=== PATIENT | male | born 1945 | race Caucasian/White ===

== ENCOUNTER 2016-12-12 20:39 | Inpatient (IN) | payer BC ==
--- NOTE | ~2016-12-12 | HP ---
History And Physical [facility] [address] [place]. [address] NAME: CARI LEE : 49 STATUS : ADM IN [facility]#: [id number] AGE: 71 ADM/REG DATE : 12/12/16 MR#: [id number] REPORT SERV DATE: 12/13/16 DICTATED BY: CORNELIO ROCK DATE: 12/12/16 REPORT STATUS : Draft TRANSCRIBED BY: MODL DATE: 12/12/16 DATE OF ADMISSION: 12/12/2016 CHIEF COMPLAINT: Fall at home and pain in his right hip. HISTORY OF PRESENT ILLNESS: This is a 71-year-old male, who presents to the emergency room at [facility], with the above-mentioned complaint. History is obtained from the patient, his family who is at bedside, and reviewing data available on the [employer] system. According to available data, Mr. Lee was putting away groceries and drinks in the refrigerator. He bent over to case picker some drinks to put in the refrigerator, but somehow fell to the floor. He fell on his right side, is pretty positive that he did not pass out. Unfortunately, he could not get up off the floor. Subsequently, the patient was brought to the emergency room via ambulance. In the emergency room, initial workup including x-ray of the hip showed right intertrochanteric fracture and Hospitalist Service is asked to admit him for further evaluation and treatment. At the time of my evaluation, he denied any chest pain, palpitations, or orthopnea. He had no cough, hemoptysis, night sweats, or weight loss. He denied any loss of consciousness. He had no fevers, chills, nausea, vomiting. He denied any hematemesis, hematochezia, or hematuria. He did not have any dysuria recently either. No other history of recent travel or exposures other than those mentioned above. PAST MEDICAL HISTORY: Significant for history of diabetes mellitus, for which he takes insulin and metformin. SOCIAL HISTORY: He chews an extraordinary large amount of tobacco, he chews a bag a week, which he says is about 20 plus scans. He denied alcohol use or recreational drug use. FAMILY HISTORY: Noncontributory. MEDICATIONS: His medications at home were reviewed by me in the chart today and reordered by me. REVIEW OF SYSTEMS: As in history of present illness. All other systems reviewed in detail and are quite unremarkable. PHYSICAL EXAMINATION: GENERAL: This is a pleasant 71-year-old, not in any acute distress. HEENT: His head is atraumatic, normocephalic. He is alert, awake, oriented to time, place, and person. Pupils are equal, reacting to light and accommodating. External ocular muscles are intact. Membranes are moist and pink. Sclerae are nonicteric. History And Physical [address] [address] NAME: CARI LEE : 49 STATUS : ADM IN [facility]#: [id number] AGE: 71 ADM/REG DATE : 12/12/16 MR#: [id number] REPORT SERV DATE: 12/13/16 DICTATED BY: CORNELIO ROCK DATE: 12/12/16 REPORT STATUS : Draft TRANSCRIBED BY: TAJ DATE: 12/12/16 NECK: Supple with no jugular venous distention, lymphadenopathy, or thyromegaly. LUNGS: Clear to auscultation with no wheezes, rubs, or crackles. HEART: Sounds regular with no murmurs, rubs, or gallops. ABDOMEN: Soft, nontender. Bowel sounds are present. EXTREMITIES: Showed numerous small breaks in the skin in his lower extremities, otherwise without cyanosis, clubbing, or edema. NEURO: Grossly intact. No focal sensory or motor deficits. Higher functions appear intact. VITAL SIGNS: Today showed a temperature of 98.6, pulse 88, respirations 20 a minute, blood pressure was 112/57, oxygen saturations were 94% breathing 2 L of oxygen via nasal cannula. LABORATORY DATA: Reviewed on the [employer] system showed a normal CMP with a blood glucose of 273. CBC was essentially within normal limits as well. Urinalysis was not done. Prothrombin time was 12.9 with an INR of 1.0. X-ray of the hip, films were reviewed by me on the PACS today and interpreted by me. Per my interpretation, there is right intertrochanteric fracture. Chest x-ray films were also reviewed and interpreted by me. There is mild congestion otherwise without any nodules, lobar consolidations, or pleural effusions. IMPRESSION: 1. Mechanical fall. 2. Right hip pain. 3. Right hip fracture. 4. Diabetes mellitus type 2. PLAN: We will admit Mr. Lee to the Hospitalist Service to a nonmonitored bed. We will start him on pain control with Dilaudid intravenously on an as needed basis. He has allergy to morphine. We will go ahead and consult Dr. Robert Carrasquillo to see him in the morning. Meanwhile, we will keep him n.p.o. after midnight. For blood sugar control, we will start him on NovoLog insulin given subcutaneously per sliding scale and check his A1c as well. We will also place him on SCDs for DVT prophylaxis while he is here. I have discussed the above plans with the patient and his family, questions were answered, and they are agreeable to the above recommendations. Hospitalist Service will be following him during his stay here. /TAJ Cornelio Rock M.D. / [id number] CC: Nando Griffin MD
--- NOTE | ~2016-12-12 | CN ---
Consultation Report [place] [id number] [facility] [address] [place]. [address] NAME: CARI FLORES : 49 STATUS : ADM IN [facility]#: [id number] AGE: 71 ADM/REG DATE : 12/12/16 MR#: [id number] REPORT SERV DATE: 12/14/16 DICTATED BY: ARIES LANDAVERDE DATE: 12/14/16 REPORT STATUS : Draft TRANSCRIBED BY: MODL DATE: 12/14/16 DATE OF CONSULTATION: 12/14/2016 CHIEF COMPLAINT: Right hip pain. HISTORY OF PRESENT ILLNESS: This pleasant 71-year old, had a same-level fall. He was brought to [facility] Emergency Room, where he was noted to have a right intertrochanteric hip fracture. I was subsequently consulted. Medicine Team admitted for medical optimization. PAST MEDICAL HISTORY: Significant for diabetes. PAST SURGICAL HISTORY: None. FAMILY HISTORY: Noncontributory. SOCIAL HISTORY: He chews about 20 cans of tobacco a week. No alcohol or recreational drug use. FAMILY HISTORY: Noncontributory. MEDICATIONS: Insulin and metformin. REVIEW OF SYSTEMS: No headache, chest pain, nausea, vomiting, shortness of breath, loss of consciousness during his fall. Negative per full 14-point systematic review. PHYSICAL EXAMINATION: GENERAL: In no apparent distress. A and O x3. Pleasant, cooperative to exam. HEENT: Pupils are equally round and reactive to light and accommodation. Extraocular muscles intact. CHEST: Clear to auscultation bilaterally. HEART: Regular rate and rhythm. ABDOMEN: Soft, nontender, nondistended. Bowel sounds are present. EXTREMITIES: Bilateral small skin breaks scabs bilateral upper extremities, lower extremities. Good distal pulses. No peripheral edema. Good sensation. Right lower extremity has limited range of motion and pain at the groin but there are no real skin breaks around the fracture site. Bilateral upper extremities, left lower extremity show full active and passive range of motion but no crepitus. RADIOGRAPHS: Radiographs reveal a right intertrochanteric hip fracture. ASSESSMENT AND PLAN: A 71-year old with right intertrochanteric hip fracture. PLAN: Plan will be for a closed reduction and intramedullary nailing. I have discussed the risks and benefits of this with him at length. He verbalized understanding and wished to Consultation Report [place] [phone] [facility] [address] [place]. [address] NAME: CARI FLORES : 49 STATUS : ADM IN PAT#: [id number] AGE: 71 ADM/REG DATE : 12/12/16 MR#: [id number] REPORT SERV DATE: 12/14/16 DICTATED BY: ARIES LANDAVERDE DATE: 12/14/16 REPORT STATUS : Draft TRANSCRIBED BY: TAJ DATE: 12/14/16 proceed. ANITA/TAJ Aries Landaverde M.D. / [id number] CC: MD Karen Car
--- NOTE | ~2016-12-12 | DS ---
Discharge Summary [facility] [address] [place]. [address] NAME: CARI LEE : 49 STATUS : DIS IN PAT#: [id number] AGE: 71 ADM/REG DATE : 12/12/16 MR#: [id number] REPORT SERV DATE: 12/20/16 DICTATED BY: PORTER RAVI DATE: 12/19/16 REPORT STATUS : Draft TRANSCRIBED BY: MODL DATE: 12/19/16 ADMISSION DATE: 12/12/2016 DISCHARGE DATE: 12/18/2016 CONDITION ON DISCHARGE: Stable. DISPOSITION: Discharged to inpatient rehab. DIAGNOSES ON DISCHARGE: 1. Right hip intertrochanteric fracture, status post surgery where he received closed reduction and intramedullary nailing of the right intertrochanteric hip fracture. The patient has done well postop. 2. Other diagnoses that are stable include diabetes mellitus that has come back not under good control as his A1c has come back greater than 8. His hemoglobin A1c during this hospitalization has come back at 8.1, reflecting diabetes mellitus, not well controlled. 3. Insulin-requiring diabetes mellitus. BRIEF HOSPITAL COURSE: Mr. Lee is a 71-year-old white male patient, who was admitted with fractured right hip after he accidentally fell on 12/12/2016. He was soon admitted, started on supportive and symptomatic care and given analgesics for pain control, and orthopedic surgeon was promptly consulted. He was seen by Dr. Robert Carrasquillo, and Dr. Carrasquillo performed the operation on 12/14/2016. The patient underwent closed reduction and intramedullary nailing of the right intertrochanteric fracture. He was transferred back to [address] [place] [address] after he was operated, and he did well postoperatively. He was placed on sliding scale insulin and long-acting insulin, and he did well after this and hence he is being transferred to inpatient rehab for further rehab after fixation of his right hip. I do have the following most recent labs on this patient. CBC on 12/18/2016 shows a WBC count of 4, hemoglobin of 10.5, hematocrit of 30.5, and platelet count of 156. His electrolyte profile on 12/18/2016 shows sodium 132, potassium of 3.6, BUN 25, and creatinine of 0.6. His sodium actually was much lower than 132 at one point during hospitalization. This was corrected with 3% normal saline and fluid restriction, and this came back to almost normal. As mentioned above, his hemoglobin A1c came back at 8.1, reflecting uncontrolled diabetes mellitus. Other tests include urinalysis that did not show any evidence of any infection. Chest x-ray, portable, that showed no acute cardiopulmonary abnormality, but an old healed left upper thoracic rib fractures that were present. The patient also had a hip x-ray of the right side and pelvis x-ray that of course showed an intertrochanteric fracture of the right hip, which has been repaired and operated upon with intramedullary nailing and closed reduction as mentioned before. I am discharging this patient to rehab on the following medications: Lantus insulin 36 units subcutaneously twice a day, NovoLog FlexPen 14 units before breakfast and 17 units before lunch and 15 units before supper, aspirin 81 mg once a day, Celexa 20 mg once a day, folic acid 1 mg once a day, Prilosec 20 mg p.o. b.i.d., Discharge Summary [address] [address] NAME: CARI LEE : 49 STATUS : DIS IN PAT#: [id number] AGE: 71 ADM/REG DATE : 12/12/16 MR#: [id number] REPORT SERV DATE: 12/20/16 DICTATED BY: PORTER RAVI DATE: 12/19/16 REPORT STATUS : Draft TRANSCRIBED BY: TAJ DATE: 12/19/16 Glucophage 1000 mg p.o. with breakfast and 1500 mg with supper, DiaBeta 10 mg p.o. b.i.d., Mevacor 40 mg p.o. daily, Neurontin 300 mg p.o. b.i.d. and 600 mg p.o. at bedtime, Mysoline or primidone 100 mg p.o. t.i.d. The patient has also been advised to stop chewing tobacco. The patient will also be on Coumadin sliding scale per Orthopedic surgery for anticoagulation for at least six weeks post hip surgery or until he is able to ambulate which ever happens first. I have spent about 40 to 45 minutes in coordinating discharge care of this patient including [id number] encounter and summarizing this discharge. HERMAN/TAJ Porter Ravi M.D. / [id number] CC: Sallie RojasTobin
--- NOTE | ~2016-12-12 | OP ---
Record Of Operation [facility] [address] [place]. [address] NAME: CARI FLORES : 49 STATUS : ADM IN PAT#: [id number] AGE: 71 ADM/REG DATE : 12/12/16 MR#: [id number] REPORT SERV DATE: 12/14/16 DICTATED BY: ARIES LANDAVERDE DATE: 12/14/16 REPORT STATUS : Draft TRANSCRIBED BY: MODL DATE: 12/14/16 DATE OF PROCEDURE: 12/14/2016 PREOPERATIVE DIAGNOSIS: Right intertrochanteric hip fracture. POSTOPERATIVE DIAGNOSIS: Right intertrochanteric hip fracture. PROCEDURE: Closed reduction and intramedullary nailing of the right intertrochanteric hip fracture. IMPLANTS: Wise [employer] Nephew 10 x 125, Intertan nail with a 115 lag screw and a 35 distal locking screw. COMPLICATIONS: None. BLOOD LOSS: Less than 50 mL. COUNTS RECORDED CORRECT: Yes. ANESTHESIA: General. CONDITION UPON LEAVING OPERATING ROOM: Stable to recovery room with good distal pulses. SPECIMENS: None. FINDINGS: Adequate bone stock, good reduction. PROCEDURE IN DETAIL: After the patient was identified in the preoperative holding area, again all questions asked were answered to their satisfaction. We marked the correct side and site and took the patient to the operative suite. The patient was placed under general endotracheal anesthesia, placed supine on a fracture table where the fracture was reduced as all bony prominences were well padded. They were then prepped and draped in sterile fashion. Correct timeout procedure and antibiotics were administered. We then utilized a 2 cm lateral incision just cephalad to his greater trochanter, carried sharply through the soft tissues. We gained good access to the proximal femur and under palpation and direct visualization with the C-arm, we identified the starting point and introduced our guidewire. We then utilized the proximal entry reamer to gain good access to the proximal femur. This was followed by placement of the nail in appropriate position on C-arm imagery. We then utilized a second incision. The extra medullary guide and a second pin to place the skin in a center-center position. Following that, we drilled sized and placed our lag screw. Traction was then removed from the leg and we reduced and compressed the fracture and then locked the lag screw in a static position to create a fixed angle device after the good compression had been utilized through the lag screw. With that, we locked distally through a poke-hole incision and the extramedullary guide. This was all done without incident. Fracture was noted to be stably fixed and hardware in good position on C-arm images. After the extramedullary guide had been removed with that, we copiously irrigated, closed the Record Of Operation [facility] [address] [place]. [address] NAME: CARI FLORES : 49 STATUS : ADM IN [facility]#: [id number] AGE: 71 ADM/REG DATE : 12/12/16 MR#: [id number] REPORT SERV DATE: 12/14/16 DICTATED BY: ARIES LANDAVERDE DATE: 12/14/16 REPORT STATUS : Draft TRANSCRIBED BY: TAJ DATE: 12/14/16 fascia with #1 Vicryl in an interrupted fashion followed by 2-0 Vicryl in the skin followed by skin kali. The patient was dressed appropriately and transferred to the recovery room in stable condition. The patient tolerated the procedure well without complication and was transferred to the intensive care unit upon extubation. ANITA/TAJ Aries Landaverde M.D. / [id number] CC: MD Karen Car
[2016-12-12 21:42] LABS: BASOPHILS 0.1 %; BASOPHILS ABSOLUTE 0.01 10/3/uL (0.0-0.16); EOSINOPHILS 1.4 %; ER CBC TAT 0 Hrs 03 Mins; HEMATOCRIT 46.1 % (40.0-51.0); HEMOGLOBIN 15.6 g/dL (13.6-17.8); IMMATURE GRANULOCYTES 0.3 %; IMMATURE GRANULOCYTES ABSOLUTE 0.02 10/3/uL (0.0-0.11); LYMPHOCYTES 18.7 %; LYMPHOCYTES ABSOLUTE 1.37 10/3/uL (0.67-4.30); MEAN CORPUS HGB CONC 33.8 g/dL (32.0-36.0); MEAN CORPUSCULAR HEMOGLOB 29.7 pg (26.0-34.0); MEAN CORPUSCULAR VOLUME 87.8 fL (80-100); MEAN PLATELET VOLUME 8.8 fL (9.2-13.0); MONOCYTES 3.6 %; MONOCYTES ABSOLUTE 0.26 10/3/uL (0.21-1.20); NEUTROPHILS 75.9 %; NEUTROPHILS ABSOLUTE 5.55 10/3/uL (2.02-8.40); PLATELET COUNT 163 10/3/uL (150-400); RBC DISTRIBUTION WIDTH 12.9 % (12.0-16.0); RED CELL COUNT 5.25 10/6/uL (4.7-6.1); WHITE BLOOD CELLS 7.3 10/3/uL (4.5-10.5)
[2016-12-12 21:45] LABS: MANUAL DIFF NO %
[2016-12-12] MEDS ORDERED: NOVOPEN SC ×3 (21:50→21:51)
[2016-12-12] MEDS ORDERED: LANTUSCART SC (21:50)
[2016-12-12] MEDS ORDERED: CELEXA20 PO (21:52)
[2016-12-12] MEDS ORDERED: HALF81 PO (21:52)
[2016-12-12] MEDS ORDERED: FOLIC PO (21:52)
[2016-12-12 21:53] LABS: BUN (BLOOD UREA NITROGEN) 12 MG/DL (6-23); CALCIUM, SERUM 8.9 MG/DL (8.5-10.4); CHLORIDE, SERUM 101 MMOL/L (96-112); CO2 (CARBON DIOXIDE) 25 MMOL/L (24-34); CREATININE 1.24 MG/DL (0.70-1.30); GFR AFRICAN AMERICAN 68 ML/MIN (>=60); GFR NON AFRICAN AMERICAN 59 ML/MIN (>=60); POTASSIUM, SERUM 4.8 MMOL/L (3.5-5.3); SODIUM, SERUM 138 MMOL/L (135-148)
[2016-12-12] MEDS ORDERED: VITD PO (21:53)
[2016-12-12] MEDS ORDERED: ZANTAC 150 PO (21:54)
[2016-12-12 21:55] LABS: GLUCOSE, SERUM 273 MG/DL (60-99)
[2016-12-12] MEDS ORDERED: MEVACOR40 MG PO (21:55)
[2016-12-12] MEDS ORDERED: DIABETA5 PO (21:55)
[2016-12-12] MEDS ORDERED: GLUCOPHAGE1000 MG PO ×2 (21:55)
[2016-12-12] MEDS ORDERED: NEUR300 PO (21:56)
[2016-12-12] MEDS ORDERED: NEUR600 PO (21:56)
[2016-12-12] MEDS ORDERED: PRIM50B PO (21:57)
[2016-12-12 21:58] LABS: PARTIAL THROMBO TIME 28.2 SEC (22.5-37.2); PROTIME (NOT ORD) 12.9 SEC (12.0-14.5)
[2016-12-12] MEDS ORDERED: DSS PO ×3 (21:58→22:15)
[2016-12-12] MEDS ORDERED: ANTI GAS PO (21:59)
[2016-12-12] MEDS ORDERED: BACTROINT TOP (22:16)
[2016-12-13 03:38] LABS: ASCORBIC ACID (UR NOT ORDER) NEG (NEG); BILIRUBIN, URINE NEGATIVE (NEG); KETONE, URINE TRACE MG/DL (NEG); LEUKOCYTE ESTERASE(NOT OR NEG (NEG); WBC (NOT ORDERED) (RFLEX) < 1 (0-5)
[2016-12-13 07:47] LABS: BASOPHILS 0.1 %; BASOPHILS ABSOLUTE 0.01 10/3/uL (0.0-0.16); EOSINOPHILS 1.3 %; EOSINOPHILS ABSOLUTE 0.09 10/3/uL (0.0-0.53); HEMOGLOBIN 13.8 g/dL (13.6-17.8); IMMATURE GRANULOCYTES 0.1 %; IMMATURE GRANULOCYTES ABSOLUTE 0.01 10/3/uL (0.0-0.11); LYMPHOCYTES 21.4 %; MEAN CORPUS HGB CONC 32.9 g/dL (32.0-36.0); MEAN CORPUSCULAR HEMOGLOB 29.1 pg (26.0-34.0); MEAN CORPUSCULAR VOLUME 88.4 fL (80-100); MEAN PLATELET VOLUME 8.9 fL (9.2-13.0); MONOCYTES 4.4 %; MONOCYTES ABSOLUTE 0.31 10/3/uL (0.21-1.20); NEUTROPHILS 72.7 %; PLATELET COUNT 160 10/3/uL (150-400); RED CELL COUNT 4.75 10/6/uL (4.7-6.1)
[2016-12-13 07:48] LABS: MANUAL DIFF NO %
[2016-12-13 07:58] LABS: CALCIUM, SERUM 8.7 MG/DL (8.5-10.4); CHLORIDE, SERUM 100 MMOL/L (96-112); CO2 (CARBON DIOXIDE) 28 MMOL/L (24-34); CREATININE 1.04 MG/DL (0.70-1.30); GFR AFRICAN AMERICAN 85 ML/MIN (>=60); GFR NON AFRICAN AMERICAN 73 ML/MIN (>=60); GLUCOSE, SERUM 263 MG/DL (60-99); PHOSPHORUS, SERUM 3.6 MG/DL (2.5-4.5); POTASSIUM, SERUM 4.7 MMOL/L (3.5-5.3); SODIUM, SERUM 136 MMOL/L (135-148)
[2016-12-13 07:59] LABS: BUN (BLOOD UREA NITROGEN) 18 MG/DL (6-23)
[2016-12-14 06:54] LABS: BASOPHILS 0.3 %; BASOPHILS ABSOLUTE 0.02 10/3/uL (0.0-0.16); EOSINOPHILS 2.2 %; EOSINOPHILS ABSOLUTE 0.13 10/3/uL (0.0-0.53); HEMATOCRIT 37.9 % (40.0-51.0); HEMOGLOBIN 12.5 g/dL (13.6-17.8); IMMATURE GRANULOCYTES 0.2 %; IMMATURE GRANULOCYTES ABSOLUTE 0.01 10/3/uL (0.0-0.11); LYMPHOCYTES 21.6 %; LYMPHOCYTES ABSOLUTE 1.28 10/3/uL (0.67-4.30); MEAN CORPUSCULAR HEMOGLOB 29.9 pg (26.0-34.0); MEAN CORPUSCULAR VOLUME 90.7 fL (80-100); MEAN PLATELET VOLUME 8.6 fL (9.2-13.0); MONOCYTES 5.4 %; MONOCYTES ABSOLUTE 0.32 10/3/uL (0.21-1.20); NEUTROPHILS 70.3 %; NEUTROPHILS ABSOLUTE 4.17 10/3/uL (2.02-8.40); PLATELET COUNT 126 10/3/uL (150-400); RBC DISTRIBUTION WIDTH 12.9 % (12.0-16.0); RED CELL COUNT 4.18 10/6/uL (4.7-6.1); WHITE BLOOD CELLS 5.9 10/3/uL (4.5-10.5)
[2016-12-14 07:00] LABS: MANUAL DIFF NO %
[2016-12-14 07:03] LABS: BUN (BLOOD UREA NITROGEN) 15 MG/DL (6-23); CHLORIDE, SERUM 101 MMOL/L (96-112); CO2 (CARBON DIOXIDE) 29 MMOL/L (24-34); CREATININE 0.92 MG/DL (0.70-1.30); GFR AFRICAN AMERICAN 98 ML/MIN (>=60); GFR NON AFRICAN AMERICAN 85 ML/MIN (>=60); GLUCOSE, SERUM 221 MG/DL (60-99); POTASSIUM, SERUM 4.8 MMOL/L (3.5-5.3); SODIUM, SERUM 136 MMOL/L (135-148)
[2016-12-15 05:59] LABS: BASOPHILS 0.2 %; BASOPHILS ABSOLUTE 0.01 10/3/uL (0.0-0.16); EOSINOPHILS 0.9 %; EOSINOPHILS ABSOLUTE 0.05 10/3/uL (0.0-0.53); HEMOGLOBIN 11.2 g/dL (13.6-17.8); IMMATURE GRANULOCYTES 0.4 %; IMMATURE GRANULOCYTES ABSOLUTE 0.02 10/3/uL (0.0-0.11); LYMPHOCYTES 16.8 %; LYMPHOCYTES ABSOLUTE 0.96 10/3/uL (0.67-4.30); MEAN CORPUS HGB CONC 33.3 g/dL (32.0-36.0); MEAN CORPUSCULAR HEMOGLOB 30.1 pg (26.0-34.0); MEAN CORPUSCULAR VOLUME 90.3 fL (80-100); MEAN PLATELET VOLUME 8.7 fL (9.2-13.0); MONOCYTES 5.6 %; MONOCYTES ABSOLUTE 0.32 10/3/uL (0.21-1.20); NEUTROPHILS 76.1 %; NEUTROPHILS ABSOLUTE 4.35 10/3/uL (2.02-8.40); PLATELET COUNT 136 10/3/uL (150-400); RED CELL COUNT 3.72 10/6/uL (4.7-6.1); WHITE BLOOD CELLS 5.7 10/3/uL (4.5-10.5)
[2016-12-15 06:00] LABS: HEMATOCRIT 33.6 % (40.0-51.0); MANUAL DIFF NO %
[2016-12-15 06:03] LABS: INTERNATIONAL NORMAL RATI 1.1 UNITS (-); PROTIME (NOT ORD) 14.3 SEC (12.0-14.5)
[2016-12-15 06:15] LABS: BUN (BLOOD UREA NITROGEN) 14 MG/DL (6-23); CALCIUM, SERUM 8.2 MG/DL (8.5-10.4); CHLORIDE, SERUM 94 MMOL/L (96-112); CREATININE 0.89 MG/DL (0.70-1.30); GFR AFRICAN AMERICAN 101 ML/MIN (>=60); GFR NON AFRICAN AMERICAN 87 ML/MIN (>=60); GLUCOSE, SERUM 243 MG/DL (60-99); POTASSIUM, SERUM 4.6 MMOL/L (3.5-5.3)
[2016-12-15 06:16] LABS: CO2 (CARBON DIOXIDE) 24 MMOL/L (24-34); SODIUM, SERUM 129 MMOL/L (135-148)
[2016-12-16 07:54] LABS: BASOPHILS 0.4 %; BASOPHILS ABSOLUTE 0.02 10/3/uL (0.0-0.16); EOSINOPHILS 1.5 %; EOSINOPHILS ABSOLUTE 0.08 10/3/uL (0.0-0.53); HEMOGLOBIN 10.8 g/dL (13.6-17.8); IMMATURE GRANULOCYTES 0.2 %; IMMATURE GRANULOCYTES ABSOLUTE 0.01 10/3/uL (0.0-0.11); LYMPHOCYTES 12.5 %; LYMPHOCYTES ABSOLUTE 0.66 10/3/uL (0.67-4.30); MEAN CORPUS HGB CONC 32.7 g/dL (32.0-36.0); MEAN CORPUSCULAR HEMOGLOB 28.6 pg (26.0-34.0); MEAN PLATELET VOLUME 8.7 fL (9.2-13.0); MONOCYTES 7.2 %; MONOCYTES ABSOLUTE 0.38 10/3/uL (0.21-1.20); NEUTROPHILS 78.2 %; NEUTROPHILS ABSOLUTE 4.11 10/3/uL (2.02-8.40); PLATELET COUNT 153 10/3/uL (150-400); RED CELL COUNT 3.78 10/6/uL (4.7-6.1); WHITE BLOOD CELLS 5.3 10/3/uL (4.5-10.5)
[2016-12-16 07:56] LABS: MANUAL DIFF NO %; MEAN CORPUSCULAR VOLUME 87.3 fL (80-100)
[2016-12-16 08:01] LABS: INTERNATIONAL NORMAL RATI 1.2 UNITS (-); PROTIME (NOT ORD) 14.8 SEC (12.0-14.5)
[2016-12-16 08:02] LABS: BUN (BLOOD UREA NITROGEN) 17 MG/DL (6-23); CALCIUM, SERUM 8.2 MG/DL (8.5-10.4); CHLORIDE, SERUM 92 MMOL/L (96-112); CO2 (CARBON DIOXIDE) 28 MMOL/L (24-34); CREATININE 0.92 MG/DL (0.70-1.30); GFR AFRICAN AMERICAN 98 ML/MIN (>=60); GFR NON AFRICAN AMERICAN 85 ML/MIN (>=60); POTASSIUM, SERUM 4.1 MMOL/L (3.5-5.3); SODIUM, SERUM 129 MMOL/L (135-148)
[2016-12-16 08:03] LABS: GLUCOSE, SERUM 178 MG/DL (60-99)
[2016-12-17 06:56] LABS: BASOPHILS 0.2 %; BASOPHILS ABSOLUTE 0.01 10/3/uL (0.0-0.16); EOSINOPHILS 1.9 %; EOSINOPHILS ABSOLUTE 0.11 10/3/uL (0.0-0.53); HEMATOCRIT 32.8 % (40.0-51.0); HEMOGLOBIN 11.2 g/dL (13.6-17.8); IMMATURE GRANULOCYTES 0.3 %; IMMATURE GRANULOCYTES ABSOLUTE 0.02 10/3/uL (0.0-0.11); LYMPHOCYTES 11.5 %; LYMPHOCYTES ABSOLUTE 0.66 10/3/uL (0.67-4.30); MANUAL DIFF NO %; MEAN CORPUS HGB CONC 34.1 g/dL (32.0-36.0); MEAN CORPUSCULAR HEMOGLOB 29.9 pg (26.0-34.0); MEAN CORPUSCULAR VOLUME 87.5 fL (80-100); MEAN PLATELET VOLUME 8.8 fL (9.2-13.0); MONOCYTES 9.7 %; MONOCYTES ABSOLUTE 0.56 10/3/uL (0.21-1.20); NEUTROPHILS 76.4 %; NEUTROPHILS ABSOLUTE 4.39 10/3/uL (2.02-8.40); PLATELET COUNT 200 10/3/uL (150-400); RBC DISTRIBUTION WIDTH 12.9 % (12.0-16.0); RED CELL COUNT 3.75 10/6/uL (4.7-6.1); WHITE BLOOD CELLS 5.8 10/3/uL (4.5-10.5)
[2016-12-17 07:00] LABS: INTERNATIONAL NORMAL RATI 1.2 UNITS (-); PROTIME (NOT ORD) 15.1 SEC (12.0-14.5)
[2016-12-17 07:19] LABS: BUN (BLOOD UREA NITROGEN) 24 MG/DL (6-23); CALCIUM, SERUM 8.5 MG/DL (8.5-10.4); CHLORIDE, SERUM 93 MMOL/L (96-112); CO2 (CARBON DIOXIDE) 27 MMOL/L (24-34); CREATININE 0.77 MG/DL (0.70-1.30); GFR AFRICAN AMERICAN 107 ML/MIN (>=60); GFR NON AFRICAN AMERICAN 93 ML/MIN (>=60); GLUCOSE, SERUM 76 MG/DL (60-99); POTASSIUM, SERUM 3.5 MMOL/L (3.5-5.3); SODIUM, SERUM 128 MMOL/L (135-148)
[2016-12-18 07:11] LABS: BASOPHILS 0.5 %; BASOPHILS ABSOLUTE 0.02 10/3/uL (0.0-0.16); EOSINOPHILS ABSOLUTE 0.12 10/3/uL (0.0-0.53); HEMATOCRIT 30.5 % (40.0-51.0); HEMOGLOBIN 10.5 g/dL (13.6-17.8); IMMATURE GRANULOCYTES 0.5 %; IMMATURE GRANULOCYTES ABSOLUTE 0.02 10/3/uL (0.0-0.11); LYMPHOCYTES 13.6 %; LYMPHOCYTES ABSOLUTE 0.55 10/3/uL (0.67-4.30); MEAN CORPUS HGB CONC 34.4 g/dL (32.0-36.0); MEAN CORPUSCULAR HEMOGLOB 28.9 pg (26.0-34.0); MEAN PLATELET VOLUME 8.8 fL (9.2-13.0); MONOCYTES 10.1 %; MONOCYTES ABSOLUTE 0.41 10/3/uL (0.21-1.20); NEUTROPHILS 72.3 %; NEUTROPHILS ABSOLUTE 2.92 10/3/uL (2.02-8.40); PLATELET COUNT 156 10/3/uL (150-400); RBC DISTRIBUTION WIDTH 12.9 % (12.0-16.0); RED CELL COUNT 3.63 10/6/uL (4.7-6.1)
[2016-12-18 07:12] LABS: MANUAL DIFF NO %
[2016-12-18 07:23] LABS: BUN (BLOOD UREA NITROGEN) 25 MG/DL (6-23); CALCIUM, SERUM 7.8 MG/DL (8.5-10.4); CHLORIDE, SERUM 96 MMOL/L (96-112); CO2 (CARBON DIOXIDE) 24 MMOL/L (24-34); CREATININE 0.64 MG/DL (0.70-1.30); GFR AFRICAN AMERICAN 116 ML/MIN (>=60); GFR NON AFRICAN AMERICAN 100 ML/MIN (>=60); POTASSIUM, SERUM 3.6 MMOL/L (3.5-5.3); SODIUM, SERUM 132 MMOL/L (135-148)
[2016-12-18 07:24] LABS: GLUCOSE, SERUM 109 MG/DL (60-99)
[2016-12-18 07:51] LABS: PLATELET ESTIMATE ADQ (ADEQUATE)
[2016-12-18 07:52] LABS: RBC MORPHOLOGY NORM (NORMAL)
== END 2016-12-18 20:29 | DRG 481 ==
LOC: ER 20:39 → 1SO 22:16
PROVIDERS: Emergency Medicine; Hospitalist; Nurse Practitioner Family; Orthopaedic Surgery
PROC: 0QS636Z Reposition Right Upper Femur with Intramedullary Internal Fixation Device, Percutaneous Approach (ICD-10-PCS; principal; 2016-12-14 13:45)
DX: S72.141A Displaced intertrochanteric fracture of right femur, initial encounter for closed fracture (principal); E87.1 Hypo-osmolality and hyponatremia; E11.42 Type 2 diabetes mellitus with diabetic polyneuropathy; E11.65 Type 2 diabetes mellitus with hyperglycemia; E83.42 Hypomagnesemia; R81 Glycosuria; I10 Essential (primary) hypertension; F17.290 Nicotine dependence, other tobacco product, uncomplicated; K21.9 Gastro-esophageal reflux disease without esophagitis; N40.1 Benign prostatic hyperplasia with lower urinary tract symptoms; R33.8 Other retention of urine; F32.9 Major depressive disorder, single episode, unspecified; G25.0 Essential tremor; W18.30XA Fall on same level, unspecified, initial encounter; Z79.4 Long term (current) use of insulin; Z79.84 Long term (current) use of oral hypoglycemic drugs; Z79.82 Long term (current) use of aspirin; Z79.899 Other long term (current) drug therapy; Z88.5 Allergy status to narcotic agent; Z88.8 Allergy status to other drugs, medicaments and biological substances
CPT/HCPCS: 36415; 71010; 72170; 73502-RT; 76000; 80048; 81001; 82962; 83036; 83735; 84100; 85025; 85610; 85730; 86850; 86900; 86901; 86920; 93005; 94640; 97110-GP; 97162-GP; 97165-GO; 97530-GP; 99285; A9270-GY; C1713; C9113; J0330; J0690; J1170; J2405; J2710; J3010

== ENCOUNTER 2017-02-14 13:54 | Inpatient (IN) | payer BC ==
--- NOTE | ~2017-02-14 | DS ---
Discharge Summary [place] [address] [place]. [address] NAME: CARI FLORES : 49 STATUS : DIS IN PAT#: [id number] AGE: 71 ADM/REG DATE : 02/14/17 MR#: [id number] REPORT SERV DATE: 02/19/17 DICTATED BY: STEFFI LE DATE: 02/18/17 REPORT STATUS : Draft TRANSCRIBED BY: MODLarry DATE: 02/18/17 ADMISSION DATE: 02/14/2017 DISCHARGE DATE: 02/18/2017 REASON FOR ADMISSION: Right hip pain after a fall. HISTORY OF PRESENT ILLNESS: Please refer to Dr. Lucero's history and physical dated 02/14/2017 for complete details regarding the patient's admission. In brief, the patient was admitted to the Hospitalist for right hip pain, concerning for an acute right hip fracture after a fall. HOSPITAL COURSE: The patient had an uncomplicated hospital course. The patient had a CT scan of his hip, which showed subacute healing, right intertrochanteric hip fracture with orthopedic hip nail remaining in satisfactory position. No new fracture is seen. Dr. Shields with Orthopedics was consulted as he had performed a surgery recently, did not recommend any further intervention other than pain control and physical therapy and placement. Placement was monitored. We restarted all of his home medications and watched his diabetes. His sugars were decently controlled. Physical Therapy evaluated the patient and recommended rehab, and we have been awaiting insurance approval to [facility]. The patient will hopefully be discharged today in a stable condition to [facility] once we have insurance approval. DISCHARGE DIAGNOSES: Right hip pain, status post fall; history of a right hip intertrochanteric fracture, status post close reduction and intramedullary nailing in December; insulin-dependent diabetes; morbid obesity; and hyperlipidemia. PROCEDURES: Include x-ray of the hip, CT scan of the hip, consultation by Dr. Shields. DISCHARGE MEDICATIONS: Include Celexa 20 mg daily; vitamin D 50,000 units every seven days; Zantac 150 mg twice a day; folic acid daily; gabapentin 300 mg twice a day along with 600 mg at bedtime; insulin glargine 36 units twice a day; insulin aspart 14 units before breakfast, 17 units before lunch, 15 units before supper; Mevacor 40 mg once a day; primidone 100 mg three times a day; aspirin 81 mg daily; metformin 1000 mg with breakfast and 1500 mg with supper; and DiaBeta 10 mg twice a day. The patient was discharged to [facility] once he has approval. SHAKA/TAJ Steffi Le MD / [id number] Discharge Summary [address] [address] NAME: CARI FLORES : 49 STATUS : DIS IN PAT#: [id number] AGE: 71 ADM/REG DATE : 02/14/17 MR#: [id number] REPORT SERV DATE: 02/19/17 DICTATED BY: STEFFI LE DATE: 02/18/17 REPORT STATUS : Draft TRANSCRIBED BY: TAJ DATE: 02/18/17 CC: MD Karen Nelson
--- NOTE | ~2017-02-14 | HP ---
History And Physical [id number] [place]. [address] NAME: CARI FLORES : 49 STATUS : ADM IN PAT#: [id number] AGE: 71 ADM/REG DATE : 02/14/17 MR#: [id number] REPORT SERV DATE: 02/14/17 DICTATED BY: BRAVO SWENSON DATE: 02/14/17 REPORT STATUS : Draft TRANSCRIBED BY: TAJ DATE: 02/14/17 DATE OF ADMISSION: 02/14/2017 CHIEF COMPLAINT: Right hip pain status post fall. This is a 71 years old male with a past medical history of recent right intertrochanteric fracture, status post ORIF by Dr. Carrasquillo on 12/14/2016, for which the patient was discharged from the hospital and transferred to [facility] at [place] for rehab. The patient states that he was able to ambulate while at rehab but was informed that he was not allowed to ambulate without assistance at discharge, therefore the patient was discharged home with a wheelchair and has been using a wheelchair while at home, however approximately three days ago, the patient states that he was sleeping in bed on his right side but sleeping too close to the edge of the bed and slipped out of the bed and fell onto his right side hard on the ground, experienced acute right hip pain. Also, the patient hit the side of the dresser with his chest and has a small laceration to his right-sided chest wall. He denies any loss of consciousness. He denies any head trauma, did not hit his head at all. Currently has no chest pain. No shortness of breath. The patient states he was able to get himself back into bed by pulling himself up, however yesterday, the patient called a family member, his [id number], due to the patient not being able to get back into bed due to worsening right hip pain, not able to stand on his right hip, therefore the patient was brought to the emergency department today, seen by a nurse practitioner, Marlene. The patient had an x-ray with findings of a possible recurrent right hip fracture Dr. Shields who is air traffic control specialist center for Dr. Carrasquillo, was called and consulted by ER staff and spoken to by Dr. Hermann Bello and with recommendations of ordering a CT of the hip for further investigation, and the hospitalist was called to admit the patient to the hospital. REVIEW OF SYSTEMS: No subjective fever or chills. No headaches. No shortness of breath. No chest pain. No nausea or vomiting. No abdominal pain. Positive right hip pain. Right hand pain. Please refer to HPI. PAST MEDICAL HISTORY: Type 2 diabetes. Right intertrochanteric fracture, status post ORIF 07/14/2017, and hyperlipidemia. PAST SURGICAL HISTORY: As above and right shoulder surgery. FAMILY HISTORY: Type 2 diabetes. SOCIAL HISTORY: He used to chew tobacco and quit in November 2015. He states family has thrown out his chewing tobacco. No alcohol or illicit drugs. Uses a wheelchair at home. Has a mygqauz-qv-rrz at bedside assisting with care. ALLERGIES: NO KNOWN ALLERGIES. HOME MEDICATIONS: Aspirin 81 mg p.o. daily; Celexa 20 mg p.o. daily; vitamin D 50,000 units p.o.q. 7 days; folic acid 1 mg p.o. q.a.m.; Neurontin 300 mg p.o. with breakfast and supper History And Physical [address] [address] NAME: CARI FLORES : [birth year] STATUS : ADM IN [facility]#: [id number] AGE: 71 ADM/REG DATE : 02/14/17 MR#: [id number] REPORT SERV DATE: 02/14/17 DICTATED BY: BRAVO SWENSON DATE: 02/14/17 REPORT STATUS : Draft TRANSCRIBED BY: TAJ DATE: 02/14/17 and 600 mg p.o. at bedtime; glyburide 5 mg p.o. b.i.d.; NovoLog 14 units subcu before breakfast and 17 units before lunch and 15 units before supper; Lantus 36 units subcu b.i.d.; Mevacor 40 mg p.o. q. supper; metformin 1000 mg with breakfast and 1500 p.o. at bedtime; Mysoline 100 mg p.o. t.i.d.; and Zantac 150 mg p.o. b.i.d. PHYSICAL EXAMINATION: VITAL SIGNS: Temperature of 97.4, blood pressure initially 163/70, currently at 140/78, pulse was 55, respiration of 17, and saturating 96% on room air. GENERAL: The patient is alert and oriented x3, currently in no distress. HEENT: Pupils equal, round, and reactive to light. Extraocular muscles are intact. Moist mucous membranes. CARDIOVASCULAR: S1, S2. Regular rate and rhythm. No murmurs, rubs, or gallops. No JVD. RESPIRATORY: Clear to auscultation bilaterally. No wheezes or crackles. No signs of tachypnea. ABDOMEN: Positive bowel sounds. Soft, nontender. No rebound. No fluid wave. No distention. EXTREMITIES: 2+ pulse bilaterally with a trace of edema with some mild shortening of the right lower extremity. NEUROLOGIC: Cranial nerves II through XII grossly intact. Moves all four extremities except for right lower extremity limited secondary to severe pain. SKIN: Laceration of the right chest wall appears to be healing. RADIOLOGY: X-ray with a healing right hip fracture with orthopedic hardware in satisfactory position. No acute changes. Dr. Kang read it. LABORATORY DATA: Sodium 140, potassium 3.9, with a chloride of 105, bicarb of 31, BUN of 7 with a creatinine of 0.77 with a glucose of 144. Magnesium of 1.5. White cell count of 4, hemoglobin of 14.3 with a platelet count of 145. INR of 1.2. UA negative. ASSESSMENT AND PLAN: 1. Suspected repeat acute right hip fracture, status post fall. 2. Type 2 diabetes. 3. Hyperlipidemia. 4. The patient will have a CT of the hip which was recommended by Dr. Shields to ER staff with reviewing x-ray of his hip, there is a possible hairline fracture at the intertrochanteric site which was not there on previous admission, therefore, we will follow up with CT for further details. Also Dr. Carrasquillo will be reconsulted. Currently Dr. Shields is air traffic control specialist center, who will initiate consultation and already been consulted in the ER. Also, we will continue with home medications for diabetes medicines with sliding scale insulin and closely monitor with fall precautions and follow up with Orthopedic recommendations. Also we will correct electrolytes as needed. BHASKAR/MODL Bravo N History And Physical [address] [place]. [address] NAME: CARI FLORES : 49 STATUS : ADM IN PAT#: [id number] AGE: 71 ADM/REG DATE : 02/14/17 MR#: [id number] REPORT SERV DATE: 02/14/17 DICTATED BY: BRAVO SWENSON DATE: 02/14/17 REPORT STATUS : Draft TRANSCRIBED BY: MODLarry DATE: 02/14/17 Sallie Swenson / [id number] CC: Sallie Hutchinson
--- NOTE | ~2017-02-14 | HP ---
History And Physical [address] [place]. [address] NAME: CARI FLORES : 49 STATUS : ADM IN [facility]#: [id number] AGE: 71 ADM/REG DATE : 02/14/17 MR#: [id number] REPORT SERV DATE: 02/15/17 DICTATED BY: CHRISTIANA HASTINGS DATE: 02/15/17 REPORT STATUS : Draft TRANSCRIBED BY: MODL DATE: 02/15/17 DATE OF ADMISSION: 02/14/2017 CHIEF COMPLAINT: Right hip pain. HISTORY: This is a 71-year-old male, who has right hip fixed by my partner several months ago, who fell out of bed on and described pain in his "buttock" since that time. He has had difficulty walking now. 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 ALLERGIES: NONE. MEDICATIONS: See chart. PAST MEDICAL HISTORY: Type 2 diabetes. PAST SURGICAL HISTORY: Right intertrochanteric fracture, ORIF as reported above. SOCIAL HISTORY: Previous history of tobacco, he says he quit. No alcohol, illicit drug use. Lives alone. FAMILY HISTORY: Noncontributory. REVIEW OF SYSTEMS: No recent illnesses other than above. PHYSICAL EXAMINATION: GENERAL: He is alert and oriented x3, in no apparent distress. HEENT: Atraumatic, normocephalic. NECK: Supple. CHEST: Symmetric. EXTREMITIES: Both upper extremities and left lower extremity without acute trauma. Right hip healing. Surgical incision site skin is intact. Minimal swelling laterally. He has a good supple range of motion in that hip with no pain, some tenderness in the SI joint area with restrictive knee motion, compartment supple. Pulses somewhat thready. NEURO: Sensory somewhat subjectively decreased. Motor intact. X-ray and CT scans are reviewed. These films are studied with the radiologist and ER doctor, and see no evidence of a change in the fracture. ASSESSMENT: Status post right intertrochanteric femur fracture fixed by my partner in November, no acute change, now with sacroiliac type pain and soft tissue pain that I believe is related to the knee arthritis. PLAN: I have discussed this with his Dr. Lucero, recommended that I agree with rehab, symptomatic management, anti-inflammatory medications may be topical medication as well, and follow up with Dr. Carrasquillo as an outpatient. History And Physical [address] [place]. [address] NAME: CARI FLORES : 49 STATUS : ADM IN PAT#: [id number] AGE: 71 ADM/REG DATE : 02/14/17 MR#: [id number] REPORT SERV DATE: 02/15/17 DICTATED BY: CHRISTIANA HASTINGS DATE: 02/15/17 REPORT STATUS : Draft TRANSCRIBED BY: TAJ DATE: 02/15/17 WTB/TAJ Atif Hastings M.D. / [id number] CC: Sallie Hutchnison
[2017-02-14 12:41] LABS: BASOPHILS 0.3 %; BASOPHILS ABSOLUTE 0.01 10/3/uL (0.0-0.16); EOSINOPHILS ABSOLUTE 0.16 10/3/uL (0.0-0.53); LYMPHOCYTES 31.2 %; LYMPHOCYTES ABSOLUTE 1.24 10/3/uL (0.67-4.30); MEAN CORPUS HGB CONC 32.7 g/dL (32.0-36.0); MEAN CORPUSCULAR HEMOGLOB 29.1 pg (26.0-34.0); MEAN PLATELET VOLUME 8.8 fL (9.2-13.0); MONOCYTES ABSOLUTE 0.32 10/3/uL (0.21-1.20); NEUTROPHILS 56.5 %; NEUTROPHILS ABSOLUTE 2.25 10/3/uL (2.02-8.40); RBC DISTRIBUTION WIDTH 13.3 % (12.0-16.0)
[2017-02-14 12:44] LABS: RED CELL COUNT 4.91 10/6/uL (4.7-6.1)
[2017-02-14 12:45] LABS: HEMATOCRIT 43.7 % (40.0-51.0); HEMOGLOBIN 14.3 g/dL (13.6-17.8); MANUAL DIFF NO %; PLATELET COUNT 145 10/3/uL (150-400)
[2017-02-14 12:48] LABS: INTERNATIONAL NORMAL RATI 1.2 UNITS (-); PARTIAL THROMBO TIME 31.4 SEC (22.5-37.2); PROTIME (NOT ORD) 14.6 SEC (12.0-14.5)
[2017-02-14 12:56] LABS: BUN (BLOOD UREA NITROGEN) 7 MG/DL (6-23); CALCIUM, SERUM 8.7 MG/DL (8.5-10.4); CHLORIDE, SERUM 105 MMOL/L (96-112); CO2 (CARBON DIOXIDE) 31 MMOL/L (24-34); CREATININE 0.77 MG/DL (0.70-1.30); GFR AFRICAN AMERICAN 107 ML/MIN (>=60); GFR NON AFRICAN AMERICAN 93 ML/MIN (>=60); GLUCOSE, SERUM 144 MG/DL (60-99); POTASSIUM, SERUM 3.9 MMOL/L (3.5-5.3); SODIUM, SERUM 140 MMOL/L (135-148)
[2017-02-14 12:57] LABS: CHEST PAIN PROFILE TAT 0 Hrs 22 Mins; TROPONIN I <0.02 NG/ML (<0.05)
[2017-02-14 12:58] LABS: CPK 35 U/L (0-200)
[2017-02-14 13:52] LABS: ASCORBIC ACID (UR NOT ORDER) NEG (NEG); BILIRUBIN, URINE NEGATIVE (NEG); ER URINALYSIS TAT 0 Hrs 13 Mins; KETONE, URINE NEGATIVE (NEG); LEUKOCYTE ESTERASE(NOT OR NEG (NEG); NITRITE (URINE) NEG (NEG); WBC (NOT ORDERED) (RFLEX) < 1 (0-5)
[~2017-02-14 13:54] MED LIST: ANTI GAS PO; BACTROINT TOP; CELEXA20 PO; DIABETA5 PO; DSS PO; FOLIC PO; GLUCOPHAGE1000 MG PO; HALF81 PO; LANTUSCART SC; MEVACOR40 MG PO; NEUR300 PO; NEUR600 PO; NOVOPEN SC; PRIM50B PO; VITD PO; ZANTAC 150 PO
[2017-02-15 05:49] LABS: BASOPHILS 0.5 %; BASOPHILS ABSOLUTE 0.02 10/3/uL (0.0-0.16); EOSINOPHILS 4.4 %; EOSINOPHILS ABSOLUTE 0.18 10/3/uL (0.0-0.53); HEMATOCRIT 42.8 % (40.0-51.0); HEMOGLOBIN 13.7 g/dL (13.6-17.8); LYMPHOCYTES 37.1 %; LYMPHOCYTES ABSOLUTE 1.51 10/3/uL (0.67-4.30); MANUAL DIFF NO %; MEAN CORPUSCULAR HEMOGLOB 28.6 pg (26.0-34.0); MEAN CORPUSCULAR VOLUME 89.4 fL (80-100); MEAN PLATELET VOLUME 8.7 fL (9.2-13.0); MONOCYTES 6.6 %; MONOCYTES ABSOLUTE 0.27 10/3/uL (0.21-1.20); NEUTROPHILS 51.4 %; NEUTROPHILS ABSOLUTE 2.09 10/3/uL (2.02-8.40); PLATELET COUNT 139 10/3/uL (150-400); RBC DISTRIBUTION WIDTH 13.3 % (12.0-16.0); RED CELL COUNT 4.79 10/6/uL (4.7-6.1); WHITE BLOOD CELLS 4.1 10/3/uL (4.5-10.5)
[2017-02-15 06:07] LABS: A/G RATIO 0.9 (0.7-1.9); ALBUMIN 3.1 G/DL (3.5-5.0); ALKALINE PHOSPHATASE 103 U/L (45-117); BUN (BLOOD UREA NITROGEN) 10 MG/DL (6-23); CALCIUM, SERUM 8.5 MG/DL (8.5-10.4); CHLORIDE, SERUM 106 MMOL/L (96-112); CO2 (CARBON DIOXIDE) 30 MMOL/L (24-34); CREATININE 0.76 MG/DL (0.70-1.30); GFR AFRICAN AMERICAN 108 ML/MIN (>=60); GFR NON AFRICAN AMERICAN 93 ML/MIN (>=60); GLOBULIN 3.6 G/DL (2.5-4.1); GLUCOSE, SERUM 118 MG/DL (60-99); POTASSIUM, SERUM 3.8 MMOL/L (3.5-5.3); SGOT(AST) 20 U/L (5-40); SGPT(ALT) 34 U/L (5-65); SODIUM, SERUM 142 MMOL/L (135-148); TOTAL BILIRUBIN 0.3 MG/DL (0-1.2); TOTAL PROTEIN 6.7 G/DL (6.0-8.5)
== END 2017-02-18 15:20 | DRG 554 ==
LOC: ER 13:54 → 5SO 15:31
PROVIDERS: Internal Medicine; Nurse Practitioner
DX: M17.11 Unilateral primary osteoarthritis, right knee (principal); E11.9 Type 2 diabetes mellitus without complications; Z91.81 History of falling; W06.XXXA Fall from bed, initial encounter; Y92.013 Bedroom of single-family (private) house as the place of occurrence of the external cause; Z87.891 Personal history of nicotine dependence; Z83.3 Family history of diabetes mellitus; Z79.899 Other long term (current) drug therapy; Z98.890 Other specified postprocedural states; E78.5 Hyperlipidemia, unspecified
CPT/HCPCS: 71010; 73130-LT; 73502-RT; 73552-RT; 73700-LT; 80048; 80053; 81001; 82550; 82962; 83036; 83735; 84484; 85025; 85610; 85730; 90471; 90714; 93005; 97110-GO; 97161-GP; 97166-GO; 97530-GP; 97535-GO; 99285; A9270-GY

== ENCOUNTER 2017-03-01 19:44 | Inpatient (IN) | payer BC ==
--- NOTE | ~2017-03-01 | HP ---
History And Physical [address] [facility] [place]. [address] NAME: CARI FLORES : 49 STATUS : ADM IN PAT#: [id number] AGE: 71 ADM/REG DATE : 03/01/17 MR#: [id number] REPORT SERV DATE: 03/02/17 DICTATED BY: IRVIN YOUNG DATE: 03/01/17 REPORT STATUS : Draft TRANSCRIBED BY: MODL DATE: 03/01/17 DATE OF ADMISSION: 03/01/2017 CHIEF COMPLAINT: A 71-year-old male with recent right hip replacement, now presenting with a fall, right leg pain, closed head injury, and fevers. HISTORY OF PRESENT ILLNESS: The patient's history was obtained through careful interview with the patient and his [id number], coupled with review of [facility] and [employer] medical records. The patient on 11/2016 underwent a right hip replacement under the care of Dr. Carrasquillo. He had difficult recovery and had to go through rehabilitation for seven weeks. He was thought to be stable enough to return back to his home, but because of instability and weakness and inability to care for himself, after two weeks at home, he had to come back to [facility] for further rehabilitation and stabilization. Unfortunately, over the last several days, he has become increasingly ill. He has had a cough intermittently productive of a slight brown sputum. He has had subjective fevers and chills for several days. He has been suffering from lightheadedness, orthostatic hypotension. He also has had diarrhea for about 24 hours. It is in the context of this illness that today, he got up to use the shower at [facility] and felt some dizziness and weakness and collapsed to the ground. He hit the back of his head and also twisted his right leg falling on his bottom and causing excruciating right hip and knee pain. He describes a primary complaint of right femur and right knee pain, sharp quality, 8/10 severity. Also discomfort of his backside, and headache. No abdominal pain. No shortness of breath. No nausea or vomiting. REVIEW OF SYSTEMS: Otherwise, a 14-point review of systems was obtained and was negative. PAST MEDICAL HISTORY: 1. Diabetes. Hemoglobin A1c of 6.2 on 02/2017, on basal insulin. 2. Hypertension. 3. Benign prostatic hypertrophy. 4. Anemia. 5. Gastroesophageal reflux disorder. 6. Elevated cholesterol. 7. Chronic essential tremor. 8. Neuropathy. PAST SURGICAL HISTORY: 1. Knee surgery. History And Physical [address] [address] NAME: CARI FLORES : 49 STATUS : ADM IN PAT#: [id number] AGE: 71 ADM/REG DATE : 03/01/17 MR#: [id number] REPORT SERV DATE: 03/02/17 DICTATED BY: IRVIN YOUNG DATE: 03/01/17 REPORT STATUS : Draft TRANSCRIBED BY: TAJ DATE: 03/01/17 2. Right hip surgery. 3. Right shoulder surgery. ALLERGIES: NO KNOWN DRUG ALLERGIES. SOCIAL HISTORY: Quit smoking in 11/2015. No alcohol abuse. Lives alone prior to his injury and now has been at [facility]. Never . Quit chewing tobacco. No children. He used to work for [employer] for [employer]. FAMILY HISTORY: Father had a CABG at 65 years of age. Mother suffers from Alzheimer's dementia. CURRENT MEDICATIONS: Include Tylenol, DuoNeb nebulizers, aspirin 81 mg daily, Celexa 20 mg p.o. daily, vitamin D, folic acid 1 mg p.o. daily, Neurontin 300 mg at breakfast and supper and 600 mg at bedtime, glyburide 10 mg p.o. b.i.d., guaifenesin Lantus 36 units subcutaneous twice a day, Humalog 14 units subcutaneous at breakfast and 17 units before lunch and 15 units before supper, Mevacor 40 mg p.o. daily, metformin 1000 mg p.o. b.i.d., Percocet p.r.n., Roxicodone 5 mg every 6 hours p.r.n., primidone 100 mg p.o. t.i.d., Zantac 150 mg p.o. b.i.d. PHYSICAL EXAMINATION: VITAL SIGNS: Temperature 101.3, pulse 104, blood pressure 97/57, respiratory rate 26, O2 saturation 95% on room air. GENERAL: An ill-appearing male, in evidence of distress secondary to pain complaint. HEENT: Pupils are equal, round, and reactive to light. No conjunctival pallor. No scleral icterus. Nares are patent. Oropharynx is clear of obstruction. Dry mucous membranes. NECK: Trachea midline. No thyromegaly. LYMPH: No cervical lymphadenopathy. No supraclavicular lymphadenopathy. No inguinal lymphadenopathy. RESPIRATORY: Clear to auscultation at bases. Scattered rhonchi but not too severe. No focal egophony by exam. No rales. The patient has a labored respiratory effort though. CARDIOVASCULAR: Tachycardic. Regular rhythm. No murmurs, rubs, or gallops. No current extremity edema is appreciated. ABDOMEN: Soft, nontender, nondistended. Normal bowel sounds auscultated throughout. No hepatosplenomegaly. DERMATOLOGICAL: The patient has chronic skin breakdown of his shins bilaterally, but no heat. No tenderness to this exam. He also has a stage I decubitus pink discoloration around his sacrum, but without any heat or tenderness or ulceration or purulent drainage. Otherwise, warm, dry extremities. No pallor. No cyanosis. PSYCHIATRIC: Normal affect. Good mood. Alert and oriented x3. LABORATORY DATA: Lactic acid 2.0 with INR 1.2. White blood cell count 6.6, hemoglobin 13, hematocrit 42, platelets 146. Sodium 133, potassium 4.2, chloride 100, bicarb 29, BUN 16, creatinine 0.95, glucose 189. Liver enzymes within normal within limits. STUDIES: History And Physical [address] [address] NAME: CARI FLORES : 49 STATUS : ADM IN [facility]#: [id number] AGE: 71 ADM/REG DATE : 03/01/17 MR#: [id number] REPORT SERV DATE: 03/02/17 DICTATED BY: IRVIN YOUNG DATE: 03/01/17 REPORT STATUS : Draft TRANSCRIBED BY: MODL DATE: 03/01/17 1. Chest x-ray by my own evaluation shows bilateral atelectasis changes. I suppose there could be a possibility of a scant patchy infiltrate but. 2. EKG by my own evaluation shows sinus rhythm. ASSESSMENT AND PLAN: 1. Sepsis. Although the patient has a normal white blood cell count that is noted, but he has a fever of 101.3, tachycardia, tachypnea, hypotension. We will check blood cultures. Check urinalysis and urine culture. Place on IV antibiotics. We will start with IV Levaquin for now and monitor effects. 2. Acute bronchitis. Place on IV antibiotics. DuoNeb nebulizers. 3. Benign prostatic hypertrophy. Place on Flomax. Check urinalysis. I will place a Israel catheter for 24 hours and check postvoid residual. 4. Stage I decubitus ulcer of the sacrum. Obtain a Wound Care consult. 5. Fall with right leg pain. Check a CT scan of the hip, femur, and knee. 6. Fall with closed head injury. Check CT scan of the brain. Monitor closely. 7. Diabetes. Hemoglobin A1c of 6.2 on 02/2017. Continue basal insulin and sliding scale insulin. KPL/MODL Irvin Young M.D. / [id number] CC: MD Karen Cook M.D. David Bowers, M.D.
--- NOTE | ~2017-03-01 | DS ---
Discharge Summary [facility] [address] [place]. [address] NAME: CARI FLORES : 49 STATUS : ADM IN [facility]#: [id number] AGE: 71 ADM/REG DATE : 03/01/17 MR#: [id number] REPORT SERV DATE: 03/05/17 DICTATED BY: REILLY MARTINES DATE: 03/05/17 REPORT STATUS : Draft TRANSCRIBED BY: MODL DATE: 03/05/17 ADMISSION DATE: 03/01/2017 DISCHARGE DATE: 03/05/2017 FINAL HOSPITAL DIAGNOSES: 1. Fever felt secondary to bronchitis. 2. Fall, nonsyncopal with pain in right hip. 3. Diabetes. 4. Hypertension. 5. BPH. 6. Anemia. 7. Tremor. 8. Neuropathy. CONSULTATIONS: None. PROCEDURES: CT scan of the brain done on the showing mild atrophy, no acute pathology seen. CT of the hip done on the showing no significant interval change of fixated basicervical right femoral neck fracture. Dynamic compression screw device in place. No significant interval healing appreciated within the last 2 weeks. No new fracture, deformity to the hips, or right femur. Small right knee joint effusion with moderate 3 compartment osteoarthritis. CURRENT PHYSICAL FINDINGS AND HPI: Please see dictated H and P by Dr. Devlin. In brief, the patient is a 71-year-old male with above medical history, it says he had several recent hospitalizations at [facility] for hip fracture and subsequent falls. Afterward he presented on the with complaint of fevers at the senior living and a fall out of the shower chair. Initial vital signs, BP was 144/73, temp on presentation was 100.4, which was his T-max. After the first hospital day, his fever remained normal. LAB WORK: Presenting sodium was slightly low at 133 but corrected on multiple rechecks. No other significant electrolyte or renal abnormalities. His initial magnesium was slightly low at 1.4, this corrected to 1.8. TSH was 1.4. BNP was 10.3, lactate was normal. Presenting white count was 6.6, which was his highest. Strep was negative. Urinalysis showed some glucose and some rbc's. Blood cultures done on the are negative to date. Initial chest x-ray was negative. Repeated the following day, negative. HOSPITAL COURSE: The patient was admitted for his febrile episode, he was also admitted for pain in his lower extremity. Cultures were drawn. Home medications reviewed and ordered appropriately. Podiatry was consulted to trim his toenails. He was placed on a diabetic diet. He was given some IV fluids and started on Levaquin. He was also started on some Flomax. He was also started on electrolyte protocol. PT was requested to evaluate for return to SNF, initially Vnaita Gerber saw the patient. He was placed on DuoNebs. His IV fluids were repleted. His Mag and potassium were repleted. His diabetes meds were changed for some hypoglycemia noted. Podiatry saw him on the and trimmed his toenails, and his insulin was restarted when his numbers began to climb although at a lower dose. I saw the Discharge Summary [address] [place]. [address] NAME: CARI FLORES : 49 STATUS : ADM IN [facility]#: [id number] AGE: 71 ADM/REG DATE : 03/01/17 MR#: [id number] REPORT SERV DATE: 03/05/17 DICTATED BY: REILLY MARTINES DATE: 03/05/17 REPORT STATUS : Draft TRANSCRIBED BY: TAJ DATE: 03/05/17 patient first on the . He was having no issues and no fevers. On the , he was noted to have an asymptomatic short run of VT which was felt secondary to his low magnesium which did not recur after replacement and on discussion with him, there was no syncopal episode involved in his fall that could be determined. Serial electrolytes were followed and normal. He was reassessed on the and felt stable to return to [facility]. There were no signs of infection to his surgical site. The wound was well apposed. There was no fluctuance or abnormality. On discussing with him, he feels his pain level and mobility issue are back to baseline as he was at the rehab center. Orthopedics did see him after his last fall, and his CT was unchanged. DISPOSITION: He is to return to [facility]. MEDICATIONS: Aspirin 81, Celexa, vitamin D 50,000 weekly, Zantac 150 b.i.d., folic acid 1 mg daily, Neurontin 300 b.i.d. and 600 at bedtime, his Lantus will reduced from 36 to 24, he will continue a level 3 sliding scale that he was on here, Mevacor 40, Mysoline 100 t.i.d., Flomax 0.4, Glucophage 1000 a.m. and 1500 p.m., he will continue Levaquin 750 one a day for four additional days to complete a seven-day course, Levemir 24 units b.i.d., DuoNeb t.i.d. p.r.n., Percocet 5/325 q.6 p.r.n., Roxicodone 5 q.6 p.r.n., guaifenesin syrup, Tylenol 325, and magnesium oxide 400 one per day. REGF/BIENVENIDOL Reilly Martines M.D. / [id number] CC: Karen Rudd
[2017-03-01 19:44] LABS: BASOPHILS 0.3 %; BASOPHILS ABSOLUTE 0.02 10/3/uL (0.0-0.16); EOSINOPHILS 0.5 %; EOSINOPHILS ABSOLUTE 0.03 10/3/uL (0.0-0.53); ER CBC TAT 0 Hrs 00 Mins; HEMATOCRIT 41.9 % (40.0-51.0); HEMOGLOBIN 13.4 g/dL (13.6-17.8); IMMATURE GRANULOCYTES 0.5 %; IMMATURE GRANULOCYTES ABSOLUTE 0.03 10/3/uL (0.0-0.11); LYMPHOCYTES 15.9 %; LYMPHOCYTES ABSOLUTE 1.05 10/3/uL (0.67-4.30); MANUAL DIFF NO %; MEAN CORPUSCULAR HEMOGLOB 28.2 pg (26.0-34.0); MEAN CORPUSCULAR VOLUME 88.2 fL (80-100); MEAN PLATELET VOLUME 8.8 fL (9.2-13.0); MONOCYTES 4.1 %; MONOCYTES ABSOLUTE 0.27 10/3/uL (0.21-1.20); NEUTROPHILS 78.7 %; NEUTROPHILS ABSOLUTE 5.19 10/3/uL (2.02-8.40); PLATELET COUNT 146 10/3/uL (150-400); RBC DISTRIBUTION WIDTH 13.6 % (12.0-16.0); RED CELL COUNT 4.75 10/6/uL (4.7-6.1); WHITE BLOOD CELLS 6.6 10/3/uL (4.5-10.5)
[2017-03-01] MEDS ORDERED: CELEXA20 PO (19:50)
[2017-03-01] MEDS ORDERED: FOLIC PO (19:50)
[2017-03-01] MEDS ORDERED: HALF81 PO (19:50)
[2017-03-01] MEDS ORDERED: NEUR300 PO (19:51)
[2017-03-01] MEDS ORDERED: NEUR600 PO (19:51)
[2017-03-01] MEDS ORDERED: GLUCOPHAGE1000 MG PO (19:52)
[2017-03-01] MEDS ORDERED: MEVACOR40 MG PO (19:52)
[2017-03-01 19:53] LABS: INTERNATIONAL NORMAL RATI 1.2 UNITS (-); PARTIAL THROMBO TIME 32.5 SEC (22.5-37.2); PROTIME (NOT ORD) 14.6 SEC (12.0-14.5)
[2017-03-01] MEDS ORDERED: GLUCPH PO (19:53)
[2017-03-01] MEDS ORDERED: PRIM50B PO (19:53)
[2017-03-01] MEDS ORDERED: ZANTAC 150 PO (19:54)
[2017-03-01] MEDS ORDERED: VITD PO (19:54)
[2017-03-01 20:00] LABS: A/G RATIO 0.8 (0.7-1.9); ALBUMIN 3.2 G/DL (3.5-5.0); ALKALINE PHOSPHATASE 121 U/L (45-117); BUN (BLOOD UREA NITROGEN) 16 MG/DL (6-23); CALCIUM, SERUM 8.2 MG/DL (8.5-10.4); CHLORIDE, SERUM 100 MMOL/L (96-112); CO2 (CARBON DIOXIDE) 29 MMOL/L (24-34); CREATININE 0.95 MG/DL (0.70-1.30); GFR AFRICAN AMERICAN 94 ML/MIN (>=60); GFR NON AFRICAN AMERICAN 81 ML/MIN (>=60); GLUCOSE, SERUM 189 MG/DL (60-99); SGOT(AST) 29 U/L (5-40); SGPT(ALT) 37 U/L (5-65); SODIUM, SERUM 133 MMOL/L (135-148); TOTAL BILIRUBIN 0.5 MG/DL (0-1.2); TOTAL PROTEIN 7.2 G/DL (6.0-8.5)
[2017-03-01 20:01] LABS: POTASSIUM, SERUM 4.2 MMOL/L (3.5-5.3)
[2017-03-01] MEDS ORDERED: DUONEB INH (20:04)
[2017-03-01] MEDS ORDERED: HUMALOG SC ×3 (20:04→20:05)
[2017-03-01] MEDS ORDERED: LANTUS SC (20:06)
[2017-03-01] MEDS ORDERED: PCET PO (20:13)
[2017-03-01] MEDS ORDERED: SILTUSSIN100 MG/5 M PO (20:14)
[2017-03-01] MEDS ORDERED: OXYCOD PO (20:14)
[2017-03-01] MEDS ORDERED: DIABETA5 PO (20:17)
[2017-03-01] MEDS ORDERED: T PO (20:18)
[2017-03-01 20:22] LABS: PROCALCITONIN 0.17 ng/mL (<0.5)
[2017-03-01 23:49] LABS: ASCORBIC ACID (UR NOT ORDER) NEG (NEG); BILIRUBIN, URINE NEGATIVE (NEG); ER URINALYSIS TAT 0 Hrs 00 Mins; KETONE, URINE NEGATIVE (NEG); LEUKOCYTE ESTERASE(NOT OR NEG (NEG); NITRITE (URINE) NEG (NEG); WBC (NOT ORDERED) (RFLEX) 1 (0-5)
[2017-03-02 06:25] LABS: BASOPHILS 0.5 %; BASOPHILS ABSOLUTE 0.02 10/3/uL (0.0-0.16); EOSINOPHILS 1.5 %; EOSINOPHILS ABSOLUTE 0.06 10/3/uL (0.0-0.53); HEMATOCRIT 39.8 % (40.0-51.0); HEMOGLOBIN 12.8 g/dL (13.6-17.8); IMMATURE GRANULOCYTES 0.2 %; IMMATURE GRANULOCYTES ABSOLUTE 0.01 10/3/uL (0.0-0.11); LYMPHOCYTES 20.3 %; LYMPHOCYTES ABSOLUTE 0.82 10/3/uL (0.67-4.30); MEAN CORPUS HGB CONC 32.2 g/dL (32.0-36.0); MEAN CORPUSCULAR HEMOGLOB 28.2 pg (26.0-34.0); MEAN CORPUSCULAR VOLUME 87.7 fL (80-100); MEAN PLATELET VOLUME 8.4 fL (9.2-13.0); MONOCYTES 9.2 %; MONOCYTES ABSOLUTE 0.37 10/3/uL (0.21-1.20); NEUTROPHILS 68.3 %; NEUTROPHILS ABSOLUTE 2.76 10/3/uL (2.02-8.40); PLATELET COUNT 113 10/3/uL (150-400); RBC DISTRIBUTION WIDTH 13.9 % (12.0-16.0); RED CELL COUNT 4.54 10/6/uL (4.7-6.1)
[2017-03-02 06:26] LABS: MANUAL DIFF NO %
[2017-03-02 06:30] LABS: INTERNATIONAL NORMAL RATI 1.3 UNITS (-); PROTIME (NOT ORD) 16.2 SEC (12.0-14.5)
[2017-03-02 06:31] LABS: PARTIAL THROMBO TIME 36.8 SEC (22.5-37.2)
[2017-03-02 06:47] LABS: A/G RATIO 0.8 (0.7-1.9); ALBUMIN 2.9 G/DL (3.5-5.0); ALKALINE PHOSPHATASE 96 U/L (45-117); BUN (BLOOD UREA NITROGEN) 12 MG/DL (6-23); CALCIUM, SERUM 8.1 MG/DL (8.5-10.4); CHLORIDE, SERUM 102 MMOL/L (96-112); CO2 (CARBON DIOXIDE) 29 MMOL/L (24-34); CPK 58 U/L (0-200); CREATININE 0.74 MG/DL (0.70-1.30); GFR AFRICAN AMERICAN 109 ML/MIN (>=60); GFR NON AFRICAN AMERICAN 94 ML/MIN (>=60); GLOBULIN 3.8 G/DL (2.5-4.1); GLUCOSE, SERUM 138 MG/DL (60-99); POTASSIUM, SERUM 3.7 MMOL/L (3.5-5.3); SGOT(AST) 20 U/L (5-40); SGPT(ALT) 30 U/L (5-65); SODIUM, SERUM 138 MMOL/L (135-148); TOTAL BILIRUBIN 0.4 MG/DL (0-1.2); TOTAL PROTEIN 6.7 G/DL (6.0-8.5); TROPONIN I <0.02 NG/ML (<0.05)
[2017-03-03 05:45] LABS: BASOPHILS 0.6 %; BASOPHILS ABSOLUTE 0.02 10/3/uL (0.0-0.16); EOSINOPHILS 7.2 %; EOSINOPHILS ABSOLUTE 0.24 10/3/uL (0.0-0.53); HEMATOCRIT 39.9 % (40.0-51.0); HEMOGLOBIN 12.6 g/dL (13.6-17.8); IMMATURE GRANULOCYTES 0.3 %; IMMATURE GRANULOCYTES ABSOLUTE 0.01 10/3/uL (0.0-0.11); LYMPHOCYTES 24.2 %; LYMPHOCYTES ABSOLUTE 0.81 10/3/uL (0.67-4.30); MEAN CORPUS HGB CONC 31.6 g/dL (32.0-36.0); MEAN CORPUSCULAR HEMOGLOB 28.3 pg (26.0-34.0); MEAN CORPUSCULAR VOLUME 89.7 fL (80-100); MEAN PLATELET VOLUME 8.8 fL (9.2-13.0); MONOCYTES 11.6 %; MONOCYTES ABSOLUTE 0.39 10/3/uL (0.21-1.20); NEUTROPHILS 56.1 %; NEUTROPHILS ABSOLUTE 1.88 10/3/uL (2.02-8.40); PLATELET COUNT 121 10/3/uL (150-400); RBC DISTRIBUTION WIDTH 13.6 % (12.0-16.0); RED CELL COUNT 4.45 10/6/uL (4.7-6.1); WHITE BLOOD CELLS 3.4 10/3/uL (4.5-10.5)
[2017-03-03 05:46] LABS: MANUAL DIFF NO %
[2017-03-03 05:51] LABS: BUN (BLOOD UREA NITROGEN) 11 MG/DL (6-23); CALCIUM, SERUM 8.1 MG/DL (8.5-10.4); CHLORIDE, SERUM 104 MMOL/L (96-112); CO2 (CARBON DIOXIDE) 31 MMOL/L (24-34); GFR AFRICAN AMERICAN 112 ML/MIN (>=60); GFR NON AFRICAN AMERICAN 96 ML/MIN (>=60); GLUCOSE, SERUM 150 MG/DL (60-99); POTASSIUM, SERUM 4.4 MMOL/L (3.5-5.3); SODIUM, SERUM 138 MMOL/L (135-148)
[2017-03-05 05:58] LABS: BASOPHILS 0.8 %; BASOPHILS ABSOLUTE 0.03 10/3/uL (0.0-0.16); EOSINOPHILS 6.5 %; EOSINOPHILS ABSOLUTE 0.24 10/3/uL (0.0-0.53); HEMATOCRIT 39.2 % (40.0-51.0); HEMOGLOBIN 12.7 g/dL (13.6-17.8); IMMATURE GRANULOCYTES 0.3 %; IMMATURE GRANULOCYTES ABSOLUTE 0.01 10/3/uL (0.0-0.11); LYMPHOCYTES 37.1 %; LYMPHOCYTES ABSOLUTE 1.36 10/3/uL (0.67-4.30); MEAN CORPUS HGB CONC 32.4 g/dL (32.0-36.0); MEAN CORPUSCULAR HEMOGLOB 28.5 pg (26.0-34.0); MEAN CORPUSCULAR VOLUME 88.1 fL (80-100); MEAN PLATELET VOLUME 8.7 fL (9.2-13.0); MONOCYTES 7.4 %; MONOCYTES ABSOLUTE 0.27 10/3/uL (0.21-1.20); NEUTROPHILS 47.9 %; NEUTROPHILS ABSOLUTE 1.76 10/3/uL (2.02-8.40); PLATELET COUNT 149 10/3/uL (150-400); RBC DISTRIBUTION WIDTH 13.4 % (12.0-16.0); RED CELL COUNT 4.45 10/6/uL (4.7-6.1); WHITE BLOOD CELLS 3.7 10/3/uL (4.5-10.5)
[2017-03-05 06:06] LABS: MANUAL DIFF NO %
[2017-03-05 06:19] LABS: BUN (BLOOD UREA NITROGEN) 13 MG/DL (6-23); CALCIUM, SERUM 8.7 MG/DL (8.5-10.4); CHLORIDE, SERUM 101 MMOL/L (96-112); CO2 (CARBON DIOXIDE) 33 MMOL/L (24-34); CREATININE 0.71 MG/DL (0.70-1.30); GFR AFRICAN AMERICAN 111 ML/MIN (>=60); GFR NON AFRICAN AMERICAN 96 ML/MIN (>=60); GLUCOSE, SERUM 117 MG/DL (60-99); SODIUM, SERUM 138 MMOL/L (135-148)
== END 2017-03-05 18:18 | DRG 872 ==
LOC: ER 19:44 → 4SO 21:50
PROVIDERS: Emergency Medicine; Hospitalist; Internal Medicine; Nurse Practitioner; Student in an Organized Health Care Education/Training Program
DX: A41.9 Sepsis, unspecified organism (principal); L89.301 Pressure ulcer of unspecified buttock, stage 1; S09.90XA Unspecified injury of head, initial encounter; E11.65 Type 2 diabetes mellitus with hyperglycemia; G62.9 Polyneuropathy, unspecified; J20.9 Acute bronchitis, unspecified; N40.0 Benign prostatic hyperplasia without lower urinary tract symptoms; K21.9 Gastro-esophageal reflux disease without esophagitis; M79.604 Pain in right leg; W18.30XA Fall on same level, unspecified, initial encounter; Z79.82 Long term (current) use of aspirin; Z79.4 Long term (current) use of insulin; Z79.84 Long term (current) use of oral hypoglycemic drugs; Z79.899 Other long term (current) drug therapy; Z87.891 Personal history of nicotine dependence; Z96.641 Presence of right artificial hip joint
CPT/HCPCS: 70450; 71010; 73700-LT; 73700-RT; 80048; 80053; 81001; 82550; 82553; 82962; 83605; 83735; 83880; 84145; 84443; 84484; 85025; 85610; 85730; 87040; 87102; 87210; 87449; 93005; 94640; 96374; 97161-GP; 97530-GP; 99285; A9270-GY; J1956; J3475